=== PATIENT | male | born 1960 | race Caucasian/White ===

== ENCOUNTER 2024-12-03 14:42 | Outpatient (CLI) | payer BC ==
[2024-12-03 15:33] LABS: #Basophils 0.08 10x3/uL (0.0-0.2); %Basophils 1.1 % (0.0-1.0); %Eosinophils 10.5 % (0.0-10.0); %Lymphocytes 20.5 % (21.0-51.0); %Neutrophils 62.6 % (42.0-75.0); Hematocrit 45.7 % (42.0-52.0); Hemoglobin 15.2 g/dL (14.0-18.0); Mean Corpuscular HGB CONC 33.3 g/dL (32.0-36.0); Mean Corpuscular Hemoglobin 31.4 pg (27.0-31.0); Mean Corpuscular Volume 94.4 fL (78.0-98.0); Mean Platelet Volume 10.3 fL (7.4-10.4); Platelet Count 243 10x3/uL (130-400); RBC Distribution Width 12.5 % (11.5-14.5); Red Blood Cell (RBC) Count 4.84 mill/uL (4.70-6.10)
[2024-12-03 15:47] LABS: PTT 29.5 sec (22.9-36.1); Prothrombin Time 12.9 sec (12.0-14.7)
== END 2024-12-03 14:43 | disposition home or self-care (01) ==
LOC: LABBT 14:42
PROVIDERS: ATTEND Neurological Surgery
DX: Z01.812 Encounter for preprocedural laboratory examination (principal); M51.26 Other intervertebral disc displacement, lumbar region; M48.061 Spinal stenosis, lumbar region without neurogenic claudication
CPT/HCPCS: 85025; 85610; 85730

== ENCOUNTER 2024-12-10 05:53 | Inpatient (IN) | payer BC ==
[2024-12-10] MEDS ORDERED: EPINEPHrine 1 MG/ML VIAL ONE (06:08)
[2024-12-10] MEDS ORDERED: Vancomycin 1 GM VIAL ONE (06:09)
[2024-12-10] MEDS ORDERED: Thrombin 5000 UNITS/5 ML VIAL ONE (06:09)
[2024-12-10] MEDS ORDERED: Bupivacaine PF 0.5% 30 ML VIAL ONE (06:09)
[2024-12-10] MEDS ORDERED: CEFAZOLIN 2 GM VIAL ONE (06:21)
[2024-12-10] MEDS ORDERED: PROPOFOL 20 ML ONE ×2 (06:34→07:19)
[2024-12-10] MEDS ORDERED: MINERAL OIL/WHITE PETROLATUM 3.5 GM TUBE ONE (06:34)
[2024-12-10] MEDS ORDERED: Rocuronium Bromide 10 MG/ML (10ML VIAL) ONE ×2 (06:34→09:55)
[2024-12-10] MEDS ORDERED: Fentanyl 250 MCG/5 ML VIAL ONE (06:34)
[2024-12-10] MEDS ORDERED: Lidocaine 2% PF 5 ML VIAL ONE (06:35)
[2024-12-10] MEDS ORDERED: Midazolam HCl 2 mg/2 ml Vial ONE (06:50)
[2024-12-10] MEDS ORDERED: Ondansetron PF 4 MG/2 ML Vial ONE (07:18)
[2024-12-10] MEDS ORDERED: Dexamethasone 4 mg/ml Vial ONE (07:18)
[2024-12-10] MEDS ORDERED: SUGAMMADEX SODIUM 200 MG/2 ML VIAL ONE (07:19)
[2024-12-10] MEDS ORDERED: Phenylephrine 40 MG/NS 250 ML 250 ML ONE (07:39)
[2024-12-10] MEDS ORDERED: PHENYLEPHRINE-NS 100 MCG/ML 10 ML SYRINGE ONE (09:55)
[2024-12-10] MEDS ORDERED: ePHEDrine Sulfate 50 MG/10 ML VIAL ONE (10:16)
[2024-12-10] MEDS ORDERED: CEFAZOLIN 1 GM VIAL ONE (10:56)
[2024-12-10] MEDS ORDERED: HYDROmorphone 2 MG/ML VIAL ONE (11:41)
[2024-12-10] MEDS ORDERED: Prochlorperazine 10 MG/2 ML VIAL IM PRN (12:16)
[2024-12-10] MEDS ORDERED: Milk Of Magnesia 30 ML UDCUP PO PRN (12:16)
[2024-12-10] MEDS ORDERED: Bisacodyl 10 MG SUPP PR PRN (12:16)
[2024-12-10] MEDS ORDERED: Mag-Al 1200 mg/1200 mg/30 ML UDCUP PO PRN (12:16)
[2024-12-10] MEDS ORDERED: Ondansetron PF 4 MG/2 ML Vial IVP PRN (12:16)
[2024-12-10] MEDS ORDERED: diphenhydrAMINE 50 MG/ML VIAL IVP PRN (12:16)
[2024-12-10] MEDS ORDERED: Acetaminophen 325 MG TAB PO PRN (12:16)
[2024-12-10] MEDS ORDERED: HYDROmorphone 0.5 MG/0.5 ML SYRINGE ONE ×2 (13:00→13:39)
[2024-12-10 14:37] VITALS: BMI 23.6
[2024-12-10] MEDS: Morphine 2 MG/ML VIAL SLOW IVP PRN (15:26)
[2024-12-10] MEDS: Sodium Chloride 0.9% 1,000 ML IV SCH (15:27)
[2024-12-10] MEDS: HYDROcodone/Acetaminophen 10/325 mg Tablet PO PRN (19:18)
[2024-12-10] MEDS: Gabapentin 300 MG CAP PO SCH (20:39)
[2024-12-10] MEDS: CEFAZOLIN 2 GM in Sodium Chloride 0.9% 100 ML IVPB SCH (20:40)
[2024-12-11] MEDS: tiZANidine HCl 4 MG TAB PO PRN (02:47)
[2024-12-11 05:48] LABS: #Basophils Less than 0.03 10x3/uL (0.0-0.2); #Eosinophils Less than 0.03 10x3/uL (0.0-0.7); %Basophils 0.2 % (0.0-1.0); %Eosinophils 0.2 % (0.0-10.0); %Lymphocytes 12.7 % (21.0-51.0); %Monocytes 6.8 % (0.0-10.0); %Neutrophils 79.7 % (42.0-75.0); Hematocrit 38.9 % (42.0-52.0); Hemoglobin 12.9 g/dL (14.0-18.0); Mean Corpuscular HGB CONC 33.2 g/dL (32.0-36.0); Mean Corpuscular Hemoglobin 31.7 pg (27.0-31.0); Mean Corpuscular Volume 95.6 fL (78.0-98.0); Mean Platelet Volume 10.4 fL (7.4-10.4); Platelet Count 232 10x3/uL (130-400); RBC Distribution Width 12.2 % (11.5-14.5); Red Blood Cell (RBC) Count 4.07 mill/uL (4.70-6.10)
[2024-12-11 05:54] LABS: Anion Gap 9 mmol/L (10-20); BUN (Urea Nitrogen) 22 mg/dL (8.4-25.7); Calc. Creatinine Clearance 107 mL/min (70-130); Calcium 8.3 mg/dL (7.8-10.44); Carbon Dioxide 26 mmol/L (23-31); Chloride 105 mmol/L (98-107); Estimated GFR 101; Glucose 91 mg/dL (80-115); Potassium 3.8 mmol/L (3.5-5.1); Sodium 136 mmol/L (136-145)
[2024-12-11] MEDS: Pantoprazole 40 MG DR.TAB PO SCH (08:09)
[2024-12-11] MEDS: Tamsulosin HCl 0.4 MG CAP PO SCH (08:09)
[2024-12-11] MEDS ORDERED: Lisdexamfetamine Dimesylate [Vyvanse] 70 MG Capsule PO SCH (09:00)
[2024-12-11] MEDS: HYDROcodone/Acetaminophen 7.5/325 mg Tablet PO PRN (22:19)
[2024-12-12] MEDS: Acetaminophen/Codeine 30-300mg Tablet PO PRN (08:25)
[2024-12-12 08:59] VITALS: BP 96/60; TEMP 98.2
== END 2024-12-12 11:10 | disposition home or self-care (01) | DRG 520 ==
LOC: SDC 05:53 → SURG A 13:49 → OBSVTOIN 12-12 10:19
PROVIDERS: ADMIT Neurological Surgery; ATTEND Neurological Surgery
PROC: 00NY0ZZ Release Lumbar Spinal Cord, Open Approach (ICD-10-PCS; principal; 2024-12-10)
PROC: 01NB0ZZ Release Lumbar Nerve, Open Approach (ICD-10-PCS; 2024-12-10)
PROC: 0SB20ZZ Excision of Lumbar Vertebral Disc, Open Approach (ICD-10-PCS; 2024-12-10)
PROC: 00U20KZ Supplement Dura Mater with Nonautologous Tissue Substitute, Open Approach (ICD-10-PCS; 2024-12-10)
DX: M51.16 Intervertebral disc disorders with radiculopathy, lumbar region (principal); M48.062 Spinal stenosis, lumbar region with neurogenic claudication; Z98.890 Other specified postprocedural states; Z79.899 Other long term (current) drug therapy
CPT/HCPCS: 36415; 80048; 85025; C1889; J0171; J0665; J0690; J1100; J1171; J2250; J2272; J2405; J2704; J3010; J3370